=== PATIENT | female | born 1995 | race Caucasian/White ===

== ENCOUNTER 2017-11-14 17:33 | Emergency (ER) | payer OTHER ==
[2017-11-14 19:06] VITALS: BP 112/77
--- NOTE | 2017-11-14 19:49 | UC ---
FLU HPI - HPI Summary HPI Summary: Was exposed to the flu earlier in the week. Low temp. Headache, sore throat. Slight cough. Exhausted. - History of Current Complaint Chief Complaint: UCGeneralIllness Stated Complaint: FLU LIKE SYMP Time Seen by Provider: 11/14/17 19:43 Hx Obtained From: Patient Hx Last Menstrual Period: 2 WKS AGO ?: No Onset/Duration: Sudden Onset, Lasting Days - 1, Worse Since - onset Severity Currently: Moderate Severity Initially: Mild Pain Intensity: 0 Associated Signs & Symptoms: Positive: Myalgia - ongoing, Cough, Nasal Congestion. Negative: Fever Related Hx: Possible Flu/Infectious Exposure, Smoking Exposure - Allergy/Home Medications Allergies/Adverse Reactions: Allergies Allergy/AdvReac Type Severity Reaction Status Date / Time No Known Allergies Allergy Verified 11/14/17 19:06 Home Medications: Home Medications Citalopram TAB* [Celexa TAB*] 20 mg PO DAILY 11/14/17 [History Confirmed ] PMH/Surg Hx/FS Hx/Imm Hx Previously Healthy: Yes Respiratory History: Asthma - as a - Surgical History Surgical History: Yes Surgery Procedure, Year, and Place: T&A. APPY. BACK LIPOMA - Family History Known Family History: Positive: None - Social History Occupation: Employed Full-time Lives: Alone - with friends Alcohol Use: Occasionally Substance Use Type: Marijuana Smoking Status (MU): Current Every Day Smoker Type: Cigarettes Amount Used/How Often: 3-4 PER DAY Length of Time of Smoking/Using Tobacco: 3 YRS Have You Smoked in the Last Year: Yes Cessation Counseling: Patient Advised to Stop Review of Systems ENT: Sore Throat Respiratory: Shortness Of Breath, Cough Is Patient Immunocompromised?: No All Other Systems Reviewed And Are Negative: Yes Physical Exam Triage Information Reviewed: Yes Appearance: No Pain Distress, Well-Nourished, Ill-Appearing Vital Signs: Initial Vital Signs Temp 97.1 F 11/14/17 19:03 Pulse 77 11/14/17 19:03 Resp 14 11/14/17 19:03 BP 112/77 11/14/17 19:03 Pulse Ox 100 11/14/17 19:03 Vital Signs Reviewed: Yes Eyes: Positive: Conjunctiva Clear ENT: Positive: Pharynx normal, Nasal congestion, TMs normal Neck exam: Normal Respiratory: Positive: Wheezing - expiratory wheeze with coughing. Cardiovascular Exam: Normal Musculoskeletal Exam: Normal Neurological Exam: Normal Psychological Exam: Normal Skin Exam: Normal Flu Course/Dx - Differential Dx/Diagnosis Differential Diagnosis/HQI/PQRI: Bronchitis, Broncholiolitis, Upper Respiratory Infection Provider Diagnoses: Acute URI. Acute bronchospasm Discharge - Discharge Plan Condition: Stable Disposition: HOME Prescriptions: predniSONE TAB* [Deltasone TAB*] 20 mg PO DAILY #18 tab Patient Education Materials: Upper Respiratory Infection (ED), Bronchospasm (ED ), Prednisone (By mouth), How to Use a Metered-Dose Inhaler (ED) Referrals: Jane Purcell MD [Primary Care Provider] -
[2017-11-14] MEDS ORDERED: predniSONE TAB* 20 MG PO ONE (20:02)
[2017-11-14] MEDS ORDERED: Albuterol HFA INHALER* 8 gm MDI INH ONE (20:02)
== END 2017-11-14 20:23 | disposition home or self-care (01) ==
LOC: UCCORT 17:33
DX: J06.9 Acute upper respiratory infection, unspecified (principal); J98.01 Acute bronchospasm; Z20.828 Contact with and (suspected) exposure to other viral communicable diseases; Z72.89 Other problems related to lifestyle; F12.90 Cannabis use, unspecified, uncomplicated; Z72.0 Tobacco use
CPT/HCPCS: 87502; 99213; A9270-GY; G0463; J7512

== ENCOUNTER 2018-03-15 09:02 | Emergency (ER) | payer OTHER ==
[2018-03-15 09:39] VITALS: BP 116/71
--- NOTE | 2018-03-15 10:03 | UC ---
Ear Complaint HPI - HPI Summary HPI Summary: Pt c/o bilateral ear pain, nasal congestion, cough, sore throat, PND, "burning chest" X 2 days. - History of Current Complaint Chief Complaint: UCRespiratory Stated Complaint: CONGESTION,EARS Time Seen by Provider: 03/15/18 09:38 Hx Obtained From: Patient Hx Last Menstrual Period: 02/23/18 ?: No Onset/Duration: Sudden Onset, Lasting Days, Still Present, Worse Since - onset Severity Initially: Mild Severity Currently: Moderate Pain Intensity: 3 Associated Signs/Symptoms: Positive: Hearing Loss, URI Symptoms - Allergies/Home Medications Allergies/Adverse Reactions: Allergies Allergy/AdvReac Type Severity Reaction Status Date / Time No Known Allergies Allergy Verified 03/15/18 09:29 Home Medications: Home Medications Hylan Ear Ache Drops 3 drop BOTH EARS Q5H PRN 03/15/18 [History] PMH/Surg Hx/FS Hx/Imm Hx Previously Healthy: Yes - Surgical History Surgical History: Yes Surgery Procedure, Year, and Place: T&A. APPY. BACK LIPOMA - Family History Known Family History: Positive: Cardiac Disease - Social History Occupation: Employed Full-time Lives: With Family Alcohol Use: Occasionally Substance Use Type: Marijuana Substance Use Comment - Amount & Last Used: occasional use last used 2 weeks ago. Smoking Status (MU): Light Every Day Tobacco Smoker Type: Cigarettes Amount Used/How Often: 5-6 cigarettes daily PER DAY Length of Time of Smoking/Using Tobacco: 3 YRS Have You Smoked in the Last Year: Yes Review of Systems Constitutional: Chills, Fatigue Skin: Negative Eyes: Negative ENT: Sore Throat, Ear Ache, Sinus Congestion Respiratory: Cough Cardiovascular: Negative Gastrointestinal: Negative Genitourinary: Negative Motor: Negative Neurovascular: Negative Musculoskeletal: Negative Neurological: Negative Psychological: Negative Is Patient Immunocompromised?: No All Other Systems Reviewed And Are Negative: Yes Physical Exam Triage Information Reviewed: Yes Appearance: Well-Appearing Vital Signs: Initial Vital Signs Temp 98 F 03/15/18 09:33 Pulse 89 03/15/18 09:33 Resp 18 03/15/18 09:33 BP 116/71 03/15/18 09:33 Pulse Ox 100 03/15/18 09:33 Vital Signs Reviewed: Yes Eye Exam: Normal ENT Exam: Other ENT: Positive: Nasal congestion, TM bulging, TM dull, TM red Dental Exam: Normal Neck exam: Normal Respiratory Exam: Other Respiratory: Positive: Decreased breath sounds - left base Cardiovascular Exam: Normal Musculoskeletal Exam: Normal Neurological Exam: Normal Psychological Exam: Normal Skin Exam: Normal Ear Complaint Course/Dx - Differential Dx/Diagnosis Differential Diagnosis/HQI/PQRI: Bronchitis, Otitis Media, URI Provider Diagnoses: bilateral OM. bronchitis Discharge - Sign-Out/Discharge Documenting (check all that apply): Discharge/Admit/Transfer - Discharge Plan Condition: Stable Disposition: HOME Prescriptions: Azithromycin TAB* [Zithromax TAB (Z-ESTRELLA) 250 mg #6 tabs] 2 tab PO .TODAY, THEN 1 DAILY #1 estrella Cetirizine* [ZyrTEC 10 MG TAB*] 10 mg PO DAILY #10 tab Guaifenesin/Pseudoephedrne HCl [Mucinex D ER Tablet] 1 each PO DAILY #10 tab Patient Education Materials: Ear Infection (ED), Acute Bronchitis (ED) Referrals: Jane Purcell MD [Primary Care Provider] - If Needed Additional Instructions: Please follow up with your PCP or return to clinic as needed. - Billing Disposition and Condition Condition: STABLE Disposition: Home
== END 2018-03-15 10:12 | disposition home or self-care (01) ==
LOC: UCCORT 09:02
DX: H66.93 Otitis media, unspecified, bilateral (principal); J40 Bronchitis, not specified as acute or chronic; F17.210 Nicotine dependence, cigarettes, uncomplicated
CPT/HCPCS: 99212; G0463

== ENCOUNTER 2018-10-08 10:26 | Emergency (ER) | payer OTHER ==
[2018-10-08 11:02] VITALS: BP 106/61
[2018-10-08] MEDS ORDERED: Ondansetron ODT TAB* 4 MG PO ONE (11:58)
--- NOTE | 2018-10-08 12:02 | UC ---
General HPI - HPI Summary HPI Summary: c/o nausea and vomiting for 3-4 days. About 4 episodes of vomiting per day. Also c/o fatigue and subjective fever. She has not missed work. She states she worked her entire shift yesterday at [employer]. - History of Current Complaint Chief Complaint: UCGI Stated Complaint: VOMITING Hx Obtained From: Patient Hx Last Menstrual Period: 08/03/18 Onset/Duration: Sudden Onset, Lasting Days - 3 Timing: Intermittent Episodes Lasting: Onset Severity: Mild Current Severity: Mild Pain Intensity: 0 Associated Signs & Symptoms: Positive: Fever, Vomiting, Weakness - Allergy/Home Medications Allergies/Adverse Reactions: Allergies Allergy/AdvReac Type Severity Reaction Status Date / Time No Known Allergies Allergy Verified 10/08/18 10:58 PMH/Surg Hx/FS Hx/Imm Hx Previously Healthy: Yes - Surgical History Surgical History: Yes Surgery Procedure, Year, and Place: T&A. APPY. BACK LIPOMA - Family History Known Family History: Positive: None, Cardiac Disease - Social History Alcohol Use: Rare Substance Use Type: None Substance Use Comment - Amount & Last Used: occasional use last used 2 weeks ago. Smoking Status (MU): Light Every Day Tobacco Smoker Type: Cigarettes Amount Used/How Often: 5-6 cigarettes daily PER DAY Length of Time of Smoking/Using Tobacco: 3 YRS Have You Smoked in the Last Year: Yes Review of Systems All Other Systems Reviewed And Are Negative: No Constitutional: Negative: Fever, Chills Skin: Negative: Rash Eyes: Negative: Eye Redness ENT: Negative: Sore Throat, Ear Ache, Nasal Discharge Respiratory: Negative: Shortness Of Breath, Cough Cardiovascular: Negative: Palpitations, Chest Pain Gastrointestinal: Positive: Vomiting, Nausea. Negative: Abdominal Pain, Diarrhea Genitourinary: Negative: Dysuria, Hematuria, Frequency Motor: Negative: Negative, Decreased ROM, Weakness Neurovascular: Positive: Negative Musculoskeletal: Negative: Arthralgia, Calf Tenderness Neurological: Positive: Weakness. Negative: Headache Is Patient Immunocompromised?: No Physical Exam Triage Information Reviewed: Yes Appearance: Well-Appearing, No Pain Distress, Well-Nourished Vital Signs: Initial Vital Signs Temp 97.9 F 10/08/18 10:56 Pulse 87 10/08/18 10:56 Resp 15 10/08/18 10:56 BP 106/61 10/08/18 10:56 Pulse Ox 100 10/08/18 10:56 Vital Signs Reviewed: Yes Eye Exam: Normal ENT Exam: Normal Dental Exam: Normal Neck exam: Normal Respiratory Exam: Normal Cardiovascular Exam: Normal Abdomen Description: Positive: Nontender, Soft Bowel Sounds: Positive: Present Musculoskeletal Exam: Normal Neurological Exam: Normal Psychological Exam: Normal Skin Exam: Normal Course/Dx - Course Course Of Treatment: pt's exam is nl. she is not tachycardic. will give zofran in the UC and then a rx for zofran. urine . - Diagnoses Provider Diagnosis: Vomiting Discharge - Sign-Out/Discharge Documenting (check all that apply): Patient Departure All imaging exams completed and their final reports reviewed: No Studies - Discharge Plan Condition: Stable Disposition: HOME Prescriptions: Ondansetron ODT TAB* [Zofran 4 MG Odt TAB*] 4 mg PO Q8H PRN #20 tab.odt PRN Reason: Nausea Patient Education Materials: Acute Nausea and Vomiting (ED) Referrals: No Primary Care Phys,NOPCP [Primary Care Provider] - [facility] [Provider Group] Additional Instructions: return if worse or any new symptoms. take the zofran for nausea. drink plenty of fluids. keep a bland diet for the next 2-3 days. Follow up with your primary care physician by Thursday. - Billing Disposition and Condition Condition: STABLE Disposition: Home
== END 2018-10-08 12:35 | disposition home or self-care (01) ==
LOC: UCCORT 10:26
DX: R11.10 Vomiting, unspecified (principal); F17.210 Nicotine dependence, cigarettes, uncomplicated
CPT/HCPCS: 84702; 99212; A9270-GY; G0463